=== PATIENT | female | born 1975 | race Caucasian/White ===

== ENCOUNTER 2017-03-15 13:45 | Emergency (ER) | payer SELFPAY ==
[~2017-03-15] VITALS: Ht 157.5 cm; Wt 131.8 kg
[~2017-03-15 13:45] MED LIST: ASPI-1198 PO; LISI10TA PO; [UNRECOGNIZED DRUG - CODE] PO
[2017-03-15 15:00] VITALS: BP 139/92
[2017-03-15] MEDS ORDERED: IBUPROFEN 800 MG TABLET PO ONE (16:00)
== END 2017-03-15 16:28 | disposition home or self-care (01) ==
LOC: EMS 13:46
DX: M25.562 Pain in left knee (principal); I10 Essential (primary) hypertension
CPT/HCPCS: 99284